=== PATIENT | female | born 1990 | race Caucasian/White ===

== ENCOUNTER → 2024-03-31 | Outpatient (BNVA) | payer MEDICAID, SELFPAY | END | disposition home or self-care (01) | PROVIDERS: PCP Physician Assistant; Referring Provider Physician Assistant; Visit Provider Urology | DX: Z09 Encounter for follow-up examination after completed treatment for conditions other than malignant neoplasm (principal); Z87.442 Personal history of urinary calculi; E66.9 Obesity, unspecified; Z68.35 Body mass index [BMI] 35.0-35.9, adult | CPT/HCPCS: 81003; 99212; G0463 ==

== ENCOUNTER 2024-05-22 22:13 | Emergency (ER) | payer MEDICAID, SELFPAY ==
[2024-05-22 22:14] VITALS: BMI 34.9
[2024-05-23] VITALS: BP 131/79; PULSE 77; RESP 20; TEMP 36.8; O2SAT 99
--- NOTE | 2024-05-23 01:27 | EDNOTE_ITS ---
ED Female Urogenital RME/HPI General Chief complaint: Urogenital-Female Stated complaint: POSSIBLE UTI Time Seen by Provider: 05/23/24 00:13 Source: patient Arrival date/time: 05/22/24 22:13 Mode of arrival: ambulatory Limitations: no limitations RME / HPI RME / HPI Narrative: 34-year-old female with past medical history of nephrolithiasis presents for evaluation of dysuria x 1 day. She endorses suprapubic discomfort which radiates to her bilateral flanks. She endorses nausea without emesis. Denies hematuria, increased vaginal discharge, genital lesions, fever, chills, rash, diarrhea. She denies history of ligation of kidney stones. Patient reports taking ibuprofen for pain with some improvement in symptoms prior to arrival to the ED. LNMP x 1 month ago. MD Complaint: dysuria and UTI Quality: sharp Duration: intermittent Exacerbating factors: urination Urinary Symptoms: dysuria Related Data Home Medications ?Medication ?Instructions ?Recorded ?Confirmed tamsulosin 0.4 mg capsule 0.4 mg PO QHS 06/10/2303/31 atorvastatin 10 mg tablet 10 mg PO QDAY 03/31/2403/31 Previous Rx's ?Medication ?Instructions ?Recorded acetaminophen 325 mg tablet 325 mg PO QID PRN pain #30 tabs 05/23/24 (Tylenol) amoxicillin 500 mg-potassium 1 tab PO BID 10 days #20 tabs 05/23/24 clavulanate 125 mg tablet (Augmentin) ondansetron 4 mg disintegrating 4 mg PO Q8H PRN nausea and 05/23/24 tablet vomiting #10 tabs Allergies Allergy/AdvReac Type Severity Reaction Status Date / Time No Known Allergies Allergy Verified 03/31/24 09:28 Review of Systems Constitutional Constitutional: Denies body ache(s), Denies chills, Denies fever(s), Denies headache(s), Denies malaise and Denies weakness ENT Ears, Nose, Mouth, and Throat: Denies headache(s) and Denies neck pain Cardiovascular Cardiovascular: Denies chest pain and Denies dyspnea Respiratory Respiratory: Denies dyspnea Gastrointestinal Gastrointestinal: Reports abdominal pain, Denies change in bowel habits, Denies change in stool character, Denies nausea and Denies vomiting Genitourinary Genitourinary: Reports dysuria, Reports flank pain and Denies vaginal discharge Musculoskeletal Musculoskeletal: Reports back pain, Denies neck pain and Denies stiffness Integumentary/Breasts Skin/Breast: Denies rash Neurologic Neurologic: Denies headache(s) and Denies weakness Past Medical History Past Medical History NEUROLOGIC: Negative Neurological Disorders CARDIAC: Negative Cardiac Disorders or Congestive Heart Failure RESPIRATORY: Negative Chronic Obstructive Pulmonary Disease (COPD), Asthma, Bronchitis, Emphysema, Pneumonia, Pulmonary Fibrosis, Cystic Fibrosis, Tuberculosis, Pulmonary Embolism, Pulmonary Edema or Sleep Apnea GASTROINTESTINAL: Negative Gastrointestinal Disorders, Hepatitis or Colorectal Cancer GENITOURINARY: Negative Genitourinary Disorders, Renal Disease or Prostate Cancer REPRODUCTIVE: Positive Previous Pregnancies; Negative Breast Cancer, Endometriosis, Genital Herpes, Gonorrhea, Pelvic Inflammatory Disease, Syphilis, Testicular Cancer or Uterine Prolapse MUSCULOSKELETAL: Negative Musculoskeletal Disorders, Bone Cancer or Carpal Tunnel Syndrome ENT: Negative Cataracts ENDOCRINE: Negative Endocrine Disorders, Diabetes Mellitus Type 1 or Diabetes Mellitus Type 2 HEMATOLOGIC: Negative Blood Disorders or Anemia PSYCHO/SOCIAL: Negative Psychiatric Problems, Schizophrenia, Recreational Drug Use, Bipolar Disorder, Depression, Anxiety, Behavior Problems, Self-Mutilation, Attention Deficit Disorder, Attention Deficit Hyperactivity Disorder, Depression, Post Traumatic Stress Disorder or Eating Disorder OTHER HISTORY: Negative Hospitalization, Autoimmune Disease, Down Syndrome, Autism, Developmental Delay, Shingles, Falls, Blood Transfusions, Blood Transfusion Reaction, Anesthesia Reactions, Organ Transplant, Chemotherapy, Radiation Therapy, Hyperbaric Therapy, MRSA, VRSA, Vancomycin-Resistant Enterococci, Human Immunodeficiency Virus (HIV), Chicken Pox, Measles, Mumps, Rubella (Faroese Measles), Pertussis, Clostridium Difficile, Cancer, Breast Cancer, Cervical Cancer, Colorectal Cancer, Lung Cancer, Ovarian Cancer, Prostate Cancer or Testicular Cancer Family History FAMILY HISTORY: Positive Family Cancer; Negative Family Psychiatric Problems, Family Respiratory Disorders, Family Cardiac Disorders, Family Gastrointestinal Problems, Family Surgery or Family Anesthesia Reaction Surgical History SURGICAL: Negative Cardiac Surgery, Open Heart Surgery, Coronary Artery Bypass Graft, Valve Replacement, Vascular Surgery, Coronary Stent, Cardiac Catheterization, Pacemaker, Angiogram, Auto Implanted Cardiovert Defib, Carotid Endarterectomy, Endocrine Surgery, Thyroidectomy, Ear Surgery, Tympanostomy Tube, Eye Surgery, Nose Surgery, Oral Surgery, Tonsillectomy, Adenoidectomy, Cochlear Implant, Corneal Transplant, Throat Surgery, Abdominal Surgery, Tracheostomy, Gastric Bypass Surgery, Gastrostomy, Bowel Surgery, Nephrectomy, Transurethral Resection, Joint Replacement, Amputation, Open Reduction Internal Fixation, Arthroscopy, Neurologic Surgery, Brain Shunt, Mastectomy, Lumpectomy, Hysterectomy, Tubal Ligation, Section or Organ Transplant Social History SMOKING STATUS: Never smoker ED Exam General Limitations: Present no limitations General appearance: Present alert and in no apparent distress Head Head exam: Present atraumatic and normocephalic Eye Eye exam: Present normal appearance and EOMI; Absent scleral icterus ENT ENT exam: Present normal exam, normal oropharynx and mucous membranes moist Neck Neck exam: Present normal inspection and full ROM Chest Chest inspection: Present normal inspection and symmetric chest wall rise Respiratory Respiratory exam: Absent respiratory distress Cardiovascular Cardiovascular exam: Present regular rate and +S1 Abdominal Exam Abdominal exam: Present soft; Absent distention or tenderness Extremities Exam Extremities exam: Present normal inspection and full ROM Back Exam Back exam: Present normal inspection and full ROM; Absent CVA tenderness (R) or CVA tenderness (L) Neurological Exam Neurological exam: Present alert Psychiatric Psychiatric exam: Present normal affect Skin Skin exam: Present warm, dry and normal color Course Quality Measures none Orders Category Date Time Status US renal BI Stat Exams 05/23/24 01:28 Completed HCG Qualitative,Urine Stat Lab 05/23/24 00:00 Completed UA, C/S IF [Urinalysis, C/S if Indicated] Stat Lab 05/23/24 00:00 Completed Urine Culture Stat Lab 05/23/24 00:00 Completed Amoxicillin/Pot Clav 875 [Augmentin 875] Med 05/23/24 03:56 Discontinued 1 tab PO X1 ONE Ketorolac Inj [Toradol Inj] Med 05/23/24 01:28 Discontinued 30 mg IM X1 ONE Vital Signs Vital signs: Vital Signs Temperature 98.3 F 05/23/24 00:00 Pulse Rate 77 05/23/24 00:00 Respiratory Rate 20 05/23/24 00:00 Blood Pressure 131/79 H 05/23/24 00:00 Pulse Oximetry (%) 99 05/23/24 00:00 Oxygen Delivery Method Room Air 05/23/24 00:00 Pulse ox 99% on room air, within normal limits. Urogenital - Female MDM Narrative MDM Narrative:: 34-year-old female presented with dysuria for the last several days. Vital signs reassuring. Unremarkable physical exam. Fortunately no sign of kidney stone or hydronephrosis on ultrasound. hCG negative. Patient denied change in vaginal discharge therefore STI testing was not performed today. UA significant for pyuria. Ultimately the patient was started on Augmentin for possible early onset UTI and discharged home with plan to follow-up. Return precautions were provided. Patient stable at time of discharge. Patient data External records reviewed:: [facility] previous records Clinical information provided by:: patient Social determinants that could affect healthcare access:: none Patient has the following chronic illnesses:: None reported. How is presenting disease/condition affected by chronic disease/condition?: no chronic disease Evaluation data The following diagnostics were reviewed and interpreted by me:: lab results and radiology exam(s) Lab and/or radiology exams considered but not ordered:: CT considered not ordered. Interpretation Summary: Renal ultrasound report: Impression: Bilateral renal cortical thinning Mild bilateral renal parenchymal scar formation No hydronephrosis UA significant for pyuria and hematuria. Possible early UTI. Medications / Prescriptions Medications or Prescriptions considered but not ordered:: Rx given. Medication administrations:: Medication Administration History Discontinued Medications Amoxicillin/Clavulanate Potassium (Amoxicillin/Pot Clav 875 Tablet) 1 tab PO X1 ONE Stop: 05/23/24 03:57 Last Admin: 05/23/24 04:04 Dose: 1 tab Documented By: MILA Ketorolac Tromethamine (Ketorolac Inj 60 Mg/2 Ml Vial) 30 mg IM X1 ONE Stop: 05/23/24 01:29 Last Admin: 05/23/24 04:04 Dose: 30 mg Documented By: MILA Rx given. Consultations Consultation(s) initiated? (list below): No Diagnosis Urogenital Female Differential Diagnosis: urinary tract infection, bacterial vaginosis, trichomoniasis, cervicitis, vaginitis, ruptured ovarian cyst, cystitis and other (Nephrolithiasis.) Most likely diagnosis given after review of the tests above:: Pyuria. Admission Indicated Admission indicated?: not indicated Admission Request Was there a request for admission?: No Disposition Plan Disposition Plan: Discharge Discharge Attestation Discharge Attestation: The patient and all family members were given an opportunity to ask questions and understood the discharge instructions. Discharge instructions specifically effects, indications for sooner follow up or return to the emergency department, and the expected course of current diagnosis. Patient condition: Stable Discharge Plan Plan Patient Disposition: HOME (Self Care) Disposition Comment: stable Prescriptions/Referrals Prescriptions/Med Rec: New ondansetron 4 mg tablet,disintegrating 4 mg PO Q8H PRN (Reason: nausea and vomiting) Qty: 10 0RF amoxicillin-pot clavulanate [Augmentin] 500-125 mg tablet 1 tab PO BID 10 Days Qty: 20 0RF acetaminophen [Tylenol] 325 mg tablet 325 mg PO QID PRN (Reason: pain) Qty: 30 0RF No Action tamsulosin 0.4 mg capsule 0.4 mg PO QHS atorvastatin 10 mg tablet 10 mg PO QDAY Referrals: Glo Valencia PA-C [Primary Care Provider] - In 1 week Problem List Clinical Impression: Left nephrolithiasis, UTI (urinary tract infection) Patient/Caregiver Discharge Instructions Other Activity Instructions:: Take Augmentin twice daily for urinary tract infection. Take Zofran as needed for nausea. Take Tylenol or Profen as needed for flank pain. Follow-up with primary care within the next 24 to 48 hours for reevaluation. Follow-up with nephrology for further planning and management of kidney stones. Return to the ED if your symptoms worsen or change. Education Materials: Preventing Kidney Stones, ED CYSTITIS Female Adult, ED Kidney Stone w/ Colic Print Language: Persian Stand Alone Forms: Kristie Award Info., Patient Portal Info Letter PRASHANTH Supervising Physician PRASHANTH Supervising Physician: Dr. Eng
--- NOTE | 2024-05-23 01:28 | XR_ITS ---
Examination: Retroperitoneal ultrasound, complete Technique: Multiple high resolution grayscale images of the retroperitoneum obtained, including kidneys and bladder. Exam date and time:May 23, 2024 0248 hrs. Indications: Dysuria, urinary tract infections this week Findings: Right kidney 11.6 cm renal cortex 1.0 cm Left kidney 11.2 cm renal cortex 2.0 cm Mild bilateral renal parenchymal scar formation No bladder mass, bladder prevoid volume 60 cc postvoid volume 51 cc Impression: Bilateral renal cortical thinning Mild bilateral renal parenchymal scar formation No hydronephrosis
[2024-05-23 02:07] LABS: Collection Type, Urine Clean Catch
[2024-05-23 02:20] LABS: Bacteria,Urine Rare; Bilirubin,Urine Negative (Negative); Blood,Urine 3+ (Negative); Clarity,Urine Turbid (Clear/Hazy); Color,Urine Lt-Yellow (Lt Yel-Yel); Glucose, Urine Negative (Negative); Ketones,Urine Negative (Negative); Leukocyte Esterase,Urine Positive (Negative); Nitrite,Urine Negative (Negative); PH,Urine 6.5 (5.0-7.0); Protein,Urine Trace (Neg - Trace); RBC,Urine 681 /hpf (0-3); Specific Gravity,Urine 1.023 (1.001-1.035); Squamous Epithelial Cell,Urine 1 /hpf (0-5); Urobilinogen,Urine Negative mg/dL (0.0-1.0); WBC,Urine 69 /hpf (0-5)
[2024-05-23 02:21] LABS: HCG Qualitative,Urine Negative
[2024-05-23 02:44] LABS: Culture Indicated,Urine Yes
[2024-05-23] MEDS: KETOROLAC INJ 60 MG/2 ML VIAL 30 MG IM (04:04)
[2024-05-23] MEDS: AMOXICILLIN/POT CLAV 875 TABLET 1 TAB PO (04:04)
== END 2024-05-23 04:15 | disposition home or self-care (01) ==
PROVIDERS: Physician Assistant; Emergency Provider Emergency Medicine; PCP Physician Assistant
DX: N39.0 Urinary tract infection, site not specified (principal); N20.0 Calculus of kidney
CPT/HCPCS: 76770; 81001; 81025; 87077; 87086; 87186; 96372; 99284; J1885; A9270

== ENCOUNTER → 2024-07-25 | Outpatient (BNVA) | payer MEDICAID, SELFPAY | END | disposition home or self-care (01) | PROVIDERS: PCP Physician Assistant; Referring Provider Physician Assistant; Visit Provider Urology | DX: N28.89 Other specified disorders of kidney and ureter (principal); E66.9 Obesity, unspecified; Z68.34 Body mass index [BMI] 34.0-34.9, adult; Z87.440 Personal history of urinary (tract) infections | CPT/HCPCS: 81003; 99212; G0463 ==

== ENCOUNTER → 2025-01-23 | Outpatient (BNVA) | payer MEDICAID, SELFPAY | END | disposition home or self-care (01) | PROVIDERS: PCP Physician Assistant; Referring Provider Physician Assistant; Visit Provider Urology | DX: N39.0 Urinary tract infection, site not specified (principal); E66.9 Obesity, unspecified; Z68.35 Body mass index [BMI] 35.0-35.9, adult; Z87.440 Personal history of urinary (tract) infections | CPT/HCPCS: 81003; 99212; G0463 ==

== ENCOUNTER 2025-02-09 20:05 | Inpatient (IN) | payer MEDICAID, SELFPAY ==
--- NOTE | 2025-02-05 08:55 | ESHP_ITS ---
RE: HALEY BROOKS : 1990 DATE OF ADMISSION: 02/09/2025 HISTORY OF PRESENT ILLNESS: This is a 34-year-old 8 para 6-0-1-6 with due date of 02/01 with intrauterine at 41 weeks and 1 day on who presents for labor pains and is noted to be 4 cm in labor. The patient denies any leaking or bleeding. She reports normal movement. ALLERGIES: NO KNOWN DRUG ALLERGIES. MEDICATIONS: multivitamin. SOCIAL HISTORY: She denies any alcohol, drug use, or smoking. PAST MEDICAL HISTORY: Kidney stones and [facility] fever. FAMILY HISTORY: Mother with breast cancer. OB HISTORY: 2010, 40 week normal vaginal delivery, 6 pound 9 ounce male, no complications. 2011, spontaneous AB 6 weeks gestation, no D and C. 2012, 40 week normal vaginal delivery 6 pound 11 ounce male, no complications. 2014, 40 week normal vaginal delivery, 8 pounds 6 ounce female, no complications. 2016, 40 week normal vaginal delivery, 6 pounds 2 ounce male, no complications. 2017, 40 week normal vaginal delivery, 7 pound 2 ounce female, no complications. 11/2018, 40 week normal vaginal delivery, 9 pound 8 ounce male, no complications. PAST SURGICAL HISTORY: Denies. REVIEW OF SYSTEMS: She denies any chest pain, palpitations, cough, fever, shortness of breath, or lower extremity pain. PHYSICAL EXAMINATION: VITAL SIGNS: Blood pressure 119/61, heart rate 89, respiration 16, temperature is 98.7, weight is 201 pounds. HEENT: Oropharynx and sclerae clear. LUNGS: Clear to auscultation bilaterally. HEART: Regular rate and rhythm. ABDOMEN: Gravid, term size, consistent with estimated weight 9 pounds. PELVIC: See RN notes. EXTREMITIES: Nontender. SKIN: No gross rashes or lesions. NEUROLOGIC: No focal deficit. ASSESSMENT AND PLAN: Intrauterine at 41 weeks and 1 day on 02/09. Early labor, anticipate spontaneous vaginal delivery. Informed consent was obtained, the patient made aware of the risk, complication, alternative, benefits of operative vaginal delivery and delivery, agrees with these modes of delivery if indicated. DT: 55:32 TT: 10:25:00 Ref: [id number] - TID: [id number] MTDD
[2025-02-09] VITALS (11 sets, daily range): BP systolic 118–129; BP diastolic 75–80; PULSE 69–106; RESP 16–98; TEMP 36.6–37; O2SAT 99; BMI 34.5; BMI 34.6
[2025-02-09 21:34] LABS: Basophils # (Auto) 0.0 Thou/mm3 (0.0-0.2); Basophils % (Auto) 0 % (0-2.5); Eosinophils # (Auto) 0.0 Thou/mm3 (0.0-0.5); Eosinophils % (Auto) 0 % (0-10); Hematocrit 35.7 % (36.0-46.0); Hemoglobin 12.2 g/dL (12.0-16.0); Immature Granulocytes Auto 0.05 Thou/mm3 (0.00-0.00); Lymphocytes # (Auto) 1.8 Thou/mm3 (1.0-4.8); Lymphocytes % (Auto) 19 % (10-50); Mean Corpuscular HGB Conc 34.2 g/dl (31.0-37.0); Mean Corpuscular Hemoglobin 29.8 pg (25.0-35.0); Mean Corpuscular Volume 87 fL (80-100); Monocytes # (Auto) 0.6 Thou/mm3 (0.0-0.8); Monocytes % (Auto) 6 % (0-12); Neutrophils # (Auto) 7.0 Thou/mm3 (1.8-7.7); Neutrophils % (Auto) 74 % (37-80); Nucleated Red Blood Cell # 0.00 Thou/mm3 (0.00-0.00); Nucleated Red Blood Cell % 0 /100 WBC (0); Platelet Count 283 Thou/mm3 (140-440); RDW Standard Deviation 44.1 fL (36.4-46.3); Red Blood Count 4.10 Miln/mm3 (4.00-5.20); White Blood Count 9.5 Thou/mm3 (3.6-11.0)
[2025-02-09 22:14] LABS: Syphilis Nonreactive (Nonreactive)
[2025-02-10] VITALS (259 sets, daily range): BP systolic 109–159; BP diastolic 66–92; PULSE 58–101; RESP 16–20; TEMP 36.5–36.9; O2SAT 91–100
[2025-02-10] MEDS: fentaNYL CIT INJ 50 mCg/ML AMP 2ML 100 MCG IVP ×2 (00:21→22:27)
--- NOTE | 2025-02-10 05:17 | PD.LDPN ---
Documentation for date of: 02/10/25 OB Labor Progress Note Pelvic Exam Dilation (cm): 5 Effacement (%): 70 station: -3 Amniotic membrane status: Intact Contractions Monitor mode: External Contraction frequency: 2-8 Contraction intensity: Mild Status status: Category l Assessment and Plan Comments: Head to high to perform AROM Augment with Pitocin Anticipate 2 u pRBCs on hold 2 large bore IVs
[2025-02-10] MEDS: RINGERS LACTATED 1000 ML 1,000 ML 100 ML IV ×3 (05:52→20:55)
[2025-02-10] MEDS: OXYTOCIN in NS 30 units 30 UNIT/500 ML BAG IV ×2 (07:15→17:43)
--- NOTE | 2025-02-10 19:33 | PD.LDPN ---
Documentation for date of: 02/10/25 OB Labor Progress Note Pelvic Exam Dilation (cm): 3 Effacement (%): 50 station: -3 Amniotic membrane status: Intact Contractions Monitor mode: External Contraction frequency: 1-5 Contraction pattern: Tachysystole Contraction intensity: Moderate Status status: Category l Assessment and Plan Comments: Station is too high to rupture membranes Discrepancy in cervical exam among examiners is due to outer os stretchs to 5 cm but inner os 3 cm. No cervical change with Pitocin earlier followed by one dose of misoprostal followed by Pitocin Stop Pitocin Trial of Cervidil
[2025-02-11] VITALS (99 sets, daily range): BP systolic 102–130; BP diastolic 55–87; PULSE 59–134; RESP 16–19; TEMP 36.7–37.2; O2SAT 89–100
[2025-02-11] MEDS: fentaNYL CIT INJ 50 mCg/ML AMP 2ML 100 MCG IVP ×3 (00:23→03:14)
[2025-02-11] MEDS: OXYTOCIN in NS 20 units 20 UNIT/1,000 ML BAG 125 UNIT IV (04:03)
--- NOTE | 2025-02-11 04:42 | ESDS_ITS ---
DS: Providers Provider Date of admission: 02/09/25 20:31 Primary care physician: Physician No Primary/Family Admitting Provider: Ramirez Montoya MD Attending Provider on Admission: Ramirez Montoya MD Attending Provider on DC: Ramirez Montoya MD Discharging Provider: Ramirez Montoya MD DS: Diagnosis Problem List Completed Was Problem List Reviewed/Reconciled?: Yes Summary/Hosp Course Peripartum Data Delivery Method: Normal Vaginal Delivery Time Spent with Patient Time attestation: Total time spent providing and/or coordinating discharge services: Exam Vital Signs Temp Pulse Resp BP Pulse Ox O2 Del Method 98.4 F 90 17 118/66 99 Room Air 02/10/25 19:04 02/11/25 04:30 02/10/25 19:04 02/11/25 04:30 02/11/25 04:39 02/10/25 16:11 Discharge Plan Plan Patient Disposition: HOME (Self Care) Patient condition on transfer: Stable Prescriptions/Referrals Prescriptions/Med Rec: New ibuprofen 600 mg tablet 600 mg PO Q6H PRN (Reason: pain) Qty: 30 0RF Continued Vitamin 27 mg iron- 800 mcg tablet 1 tab PO QDAY Referrals: No Primary/Family,Physician [Primary Care Provider] Patient/Caregiver Discharge Instructions Discharge Activity: activity as tolerated Other Discharge Activity Instructions:: Follow up office 6 weeks. Print Language: Serbian Stand Alone Forms: Kristie Award Info., Patient Portal Info Letter Planned Discharge Date 02/12/25
--- NOTE | 2025-02-11 04:42 | PD.LDDELS ---
Data (Franco) Data Hx Section: No : 8 Term: 6 : 0 Livin Abortions: Spontaneous & Theraputic: 1 Delivery Data (Franco) Labor Data Initiation of labor: Augmentation Induction/Augmentation Agent: Cytotec-PO, Cervidil, Pitocin and Artificial ROM ROM date: 02/11/25 ROM time: 03:52 Amniotic membrane rupture type: Artificial Amniotic fluid description: Clear Delivery Data EDC: 02/01/25 EDC calculated by:: LMP/early US confirmation Onset of labor date: 02/09/25 Onset of labor time: 18:00 Complete dilation date: 02/11/25 Complete dilation time: 03:53 [place] delivery date: 02/11/25 delivery time: 04:02 Gestational age (weeks): 41 Gestational age (days): 3 Placenta delivery date: 02/11/25 Placenta delivery time: 04:08 Stage 1 total time: Labor - Stage 1 Duration 33 hours and 53 minutes Delivered by: Ramirez Montoya Delivery nurse: ximena finley rn [place] nurse: michael ackerman rn Practice Performance Manager at delivery: No Support person(s) at delivery: father of the baby Delivery Method Delivery method: Normal Vaginal Delivery Presentation: Vertex position: OA Anesthesia Type Anesthesia Type: None Placenta Placenta delivery description: Spontaneous Cord blood sent to lab: Yes cord blood collection: Cord Blood Type EBL Estimated blood loss (ml): 100 Umbilical Cord cord description: 3 Vessels Complications Complications: None [place] Data (Franco) Data order: 1 [place]'s gender: Male Identification band number: [id number] weight (gms): 7 lb 15.692 oz Weight (pounds): 7 lbs and 15.7 ozs 1 minute: 8 5 minutes: 9
[2025-02-11] MEDS: TRANEXAMIC ACID 1,000 MG IVPB 1,000 MG/100 ML BAG 200 MG IV (04:47)
[2025-02-11 10:52] LABS: Basophils # (Auto) 0.0 Thou/mm3 (0.0-0.2); Basophils % (Auto) 0 % (0-2.5); Eosinophils # (Auto) 0.0 Thou/mm3 (0.0-0.5); Eosinophils % (Auto) 0 % (0-10); Hematocrit 35.8 % (36.0-46.0); Hemoglobin 12.1 g/dL (12.0-16.0); Immature Granulocytes Auto 0.06 Thou/mm3 (0.00-0.00); Lymphocytes # (Auto) 1.2 Thou/mm3 (1.0-4.8); Lymphocytes % (Auto) 8 % (10-50); Mean Corpuscular HGB Conc 33.8 g/dl (31.0-37.0); Mean Corpuscular Hemoglobin 29.9 pg (25.0-35.0); Mean Corpuscular Volume 88 fL (80-100); Monocytes # (Auto) 0.9 Thou/mm3 (0.0-0.8); Monocytes % (Auto) 6 % (0-12); Neutrophils # (Auto) 12.7 Thou/mm3 (1.8-7.7); Neutrophils % (Auto) 85 % (37-80); Nucleated Red Blood Cell # 0.00 Thou/mm3 (0.00-0.00); Nucleated Red Blood Cell % 0 /100 WBC (0); Platelet Count 243 Thou/mm3 (140-440); RDW Standard Deviation 44.8 fL (36.4-46.3); Red Blood Count 4.05 Miln/mm3 (4.00-5.20); White Blood Count 14.9 Thou/mm3 (3.6-11.0)
[2025-02-11] MEDS: IBUPROFEN TAB 400 MG TABLET 800 MG PO ×2 (11:18→15:18)
[2025-02-11] MEDS: HYDROcodone/APAP 5/325 TABLET 1 TAB PO (20:36)
[2025-02-12] MEDS: IBUPROFEN TAB 400 MG TABLET 800 MG PO (03:19)
[2025-02-12 03:58] VITALS: BP 108/70; PULSE 73; RESP 16; TEMP 36.6; O2SAT 97
[2025-02-12 08:00] VITALS: BP 120/83; PULSE 74; RESP 16; TEMP 36.4; O2SAT 97
--- NOTE | 2025-02-12 09:24 | ESPR_ITS ---
RE: HALEY BROOKS : 1990 DATE OF SERVICE: 02/12/2025 day number 1. Patient denies any problem or complaints. She is voiding. She is ambulating. She is tolerating a regular diet. She is passing flatus. She denies any excessive vaginal bleeding. She denies any dizziness or lightheadedness. She denies any chest pain, palpitations, shortness of breath or lower extremity pain. OBJECTIVE: VITAL SIGNS: Blood pressure 108/70, heart rate 73, respiration 16, temperature is 97.9. Pulse ox is 97% on room air. LUNGS: Clear to auscultation bilaterally. HEART: Regular rate rhythm. ABDOMEN: Fundus is firm. EXTREMITIES: Nontender. LABORATORY DATA: Hemoglobin pre-delivery is 12.2, post-delivery is 12.1. ASSESSMENT AND PLAN: day number 1 status post spontaneous vaginal delivery. Plan is discharge home, discharge instructions given. Follow up in the office in 6 weeks. DT: 08:11:28 TT: 09:22:00 Ref: [id number] - TID: [id number]
== END 2025-02-12 11:27 | disposition home or self-care (01) | DRG 560 ==
LOC: S4SX 02-11 05:42 → S4NX 02-11 06:23
PROVIDERS: Admitting Provider Specialist; Visit Provider Specialist
DX: O48.0 Post-term pregnancy (principal); Z3A.41 41 weeks gestation of pregnancy; Z37.0 Single live birth
CPT/HCPCS: 36415; 59025; 59409; 85025; 86780; 86850; 86900; 86901; 86923; 94762; J2590; J3010; J3490; J7120; S0191; A9270